=== PATIENT | male | born 1940 | race Caucasian/White ===

== ENCOUNTER 2020-11-27 07:43 | Outpatient (REF) | payer MEDICARE, SELFPAY ==
[2020-11-27 09:51] LABS: PSA,Total (Free>4and<10) 5.11 ng/mL (0.00-4.00)
[2020-11-28 11:02] LABS: Free Prostate Spec Ag 2.7 ng/mL; Percent Free Prostate Spec Ag 52 % (calc) (>25); Prostate Specific Ag Total 5.2 ng/mL (< OR = 4.0)
== END 2020-11-27 07:44 | disposition home or self-care (01) ==
LOC: HO.LAB 07:43
PROVIDERS: PCP Internal Medicine; Visit Provider Urology
DX: Z12.5 Encounter for screening for malignant neoplasm of prostate (principal); R97.20 Elevated prostate specific antigen [PSA]
CPT/HCPCS: 36415; 84153; 84154

== ENCOUNTER → 2020-12-08 14:36 | Outpatient (BNVA) | payer MEDICARE, SELFPAY | PROVIDERS: PCP Internal Medicine; Visit Provider Urology | DX: R97.20 Elevated prostate specific antigen [PSA] (principal); N40.1 Benign prostatic hyperplasia with lower urinary tract symptoms; N13.8 Other obstructive and reflux uropathy | CPT/HCPCS: 81002; 99212 ==

== ENCOUNTER → 2021-02-22 09:13 | Outpatient (BNVA) | payer MEDICARE, SELFPAY | PROVIDERS: PCP Internal Medicine; Visit Provider Urology | DX: N40.1 Benign prostatic hyperplasia with lower urinary tract symptoms (principal); N13.8 Other obstructive and reflux uropathy; R97.20 Elevated prostate specific antigen [PSA] | CPT/HCPCS: 99212 ==

== ENCOUNTER 2021-06-08 10:34 | Outpatient (REF) | payer MEDICARE, SELFPAY ==
[2021-06-08 12:22] LABS: PSA,Total (Free>4and<10) 6.05 ng/mL (0.00-4.00)
[2021-06-11 11:42] LABS: Free Prostate Spec Ag 3.1 ng/mL; Percent Free Prostate Spec Ag 51 % (calc) (>25); Prostate Specific Ag Total 6.1 ng/mL (< OR = 4.0)
== END 2021-06-08 10:35 | disposition home or self-care (01) ==
LOC: HO.LAB 10:34
PROVIDERS: PCP Internal Medicine; Visit Provider Urology
DX: Z12.5 Encounter for screening for malignant neoplasm of prostate (principal); N13.8 Other obstructive and reflux uropathy; N40.1 Benign prostatic hyperplasia with lower urinary tract symptoms; R97.20 Elevated prostate specific antigen [PSA]
CPT/HCPCS: 36415; 84153; 84154

== ENCOUNTER → 2021-06-13 13:07 | Outpatient (BNVA) | payer MEDICARE, SELFPAY | PROVIDERS: PCP Internal Medicine; Visit Provider Urology | DX: N40.1 Benign prostatic hyperplasia with lower urinary tract symptoms (principal); N13.8 Other obstructive and reflux uropathy; N52.1 Erectile dysfunction due to diseases classified elsewhere; I77.9 Disorder of arteries and arterioles, unspecified | CPT/HCPCS: Q3014 ==

== ENCOUNTER 2021-11-29 13:33 | Outpatient (REF) | payer MEDICARE, SELFPAY ==
[2021-11-29 15:15] LABS: PSA,Total (Free>4and<10) 7.21 ng/mL (0.00-4.00)
[2021-11-30 12:07] LABS: Free Prostate Spec Ag 3.6 ng/mL; Percent Free Prostate Spec Ag 50 % (calc) (>25); Prostate Specific Ag Total 7.2 ng/mL (< OR = 4.0)
== END 2021-11-29 13:34 | disposition home or self-care (01) ==
LOC: HO.LAB 13:33
PROVIDERS: PCP Internal Medicine; Visit Provider Urology
DX: Z12.5 Encounter for screening for malignant neoplasm of prostate (principal); N40.1 Benign prostatic hyperplasia with lower urinary tract symptoms; N13.8 Other obstructive and reflux uropathy
CPT/HCPCS: 36415; 84153; 84154

== ENCOUNTER → 2021-12-12 12:44 | Outpatient (BNVA) | payer MEDICARE, SELFPAY | PROVIDERS: PCP Internal Medicine; Visit Provider Urology | DX: R97.20 Elevated prostate specific antigen [PSA] (principal); N40.1 Benign prostatic hyperplasia with lower urinary tract symptoms; N13.8 Other obstructive and reflux uropathy | CPT/HCPCS: Q3014 ==

== ENCOUNTER 2022-02-21 10:21 | Outpatient (REF) | payer MEDICARE, SELFPAY ==
[2022-02-21 11:45] LABS: Appearance Urine CLEAR; Color Urine YELLOW; Glucose Urine UA NEG (NEG); Leukocyte Esterase Urine NEG (NEG); Nitrite Urine NEG (NEG); PH 6.5 (5.0-8.0); Urine Blood NEG (NEG); Urine Ketones NEG (NEG); Urine Protein NEG (NEG-TRACE)
== END 2022-02-21 10:22 | disposition home or self-care (01) ==
LOC: HO.HMGCLDS 10:21
PROVIDERS: Absent Provider Urology; Visit Provider Internal Medicine
DX: N40.1 Benign prostatic hyperplasia with lower urinary tract symptoms (principal); R30.0 Dysuria; N13.8 Other obstructive and reflux uropathy
CPT/HCPCS: 81003

== ENCOUNTER → 2022-04-04 10:22 | Outpatient (BNVA) | payer MEDICARE, SELFPAY | PROVIDERS: PCP Internal Medicine; Visit Provider Urology | DX: R97.20 Elevated prostate specific antigen [PSA] (principal); N40.1 Benign prostatic hyperplasia with lower urinary tract symptoms; N13.8 Other obstructive and reflux uropathy; N41.9 Inflammatory disease of prostate, unspecified; N52.1 Erectile dysfunction due to diseases classified elsewhere; I77.9 Disorder of arteries and arterioles, unspecified | CPT/HCPCS: 99212 ==

== ENCOUNTER → 2022-04-11 09:44 | Outpatient (BNVA) | payer MEDICARE, SELFPAY | PROVIDERS: PCP Internal Medicine; Visit Provider Urology | DX: N39.0 Urinary tract infection, site not specified (principal); N51 Disorders of male genital organs in diseases classified elsewhere; N45.1 Epididymitis; B49 Unspecified mycosis | CPT/HCPCS: Q3014 ==

== ENCOUNTER 2022-05-29 13:51 | Outpatient (REF) | payer MEDICARE, SELFPAY ==
[2022-05-29 15:24] LABS: PSA,Total (Free>4and<10) 4.86 ng/mL (0.00-4.00)
[2022-05-31 09:22] LABS: Free Prostate Spec Ag 3.3 ng/mL; Percent Free Prostate Spec Ag 56 % (calc) (>25); Prostate Specific Ag Total 5.9 ng/mL (< OR = 4.0)
== END 2022-05-29 13:52 | disposition home or self-care (01) ==
LOC: HO.LAB 13:51
PROVIDERS: PCP Internal Medicine; Visit Provider Urology
DX: Z12.5 Encounter for screening for malignant neoplasm of prostate (principal); N40.1 Benign prostatic hyperplasia with lower urinary tract symptoms; N13.8 Other obstructive and reflux uropathy
CPT/HCPCS: 36415; 84153; 84154

== ENCOUNTER → 2022-05-31 11:30 | Outpatient (BNVA) | payer MEDICARE, SELFPAY | PROVIDERS: PCP Internal Medicine; Visit Provider Urology | DX: N40.1 Benign prostatic hyperplasia with lower urinary tract symptoms (principal); N13.8 Other obstructive and reflux uropathy; I77.9 Disorder of arteries and arterioles, unspecified; N52.01 Erectile dysfunction due to arterial insufficiency; B37.49 Other urogenital candidiasis; N51 Disorders of male genital organs in diseases classified elsewhere | CPT/HCPCS: Q3014 ==

== ENCOUNTER 2022-11-18 11:15 | Outpatient (REF) | payer MEDICARE, SELFPAY ==
[2022-11-18 13:06] LABS: PSA,Total (Free>4and<10) 6.49 ng/mL (0.00-4.00)
[2022-11-19 10:44] LABS: Free Prostate Spec Ag 4.1 ng/mL; Percent Free Prostate Spec Ag 61 % (calc) (>25); Prostate Specific Ag Total 6.7 ng/mL (< OR = 4.0)
== END 2022-11-18 11:16 | disposition home or self-care (01) ==
LOC: HO.LAB 11:15
PROVIDERS: PCP Internal Medicine; Visit Provider Urology
DX: R97.20 Elevated prostate specific antigen [PSA] (principal); Z12.5 Encounter for screening for malignant neoplasm of prostate
CPT/HCPCS: 36415; 84153; 84154

== ENCOUNTER → 2022-12-03 15:22 | Outpatient (BNVA) | payer MEDICARE, SELFPAY | PROVIDERS: PCP Internal Medicine; Visit Provider Urology | DX: I77.9 Disorder of arteries and arterioles, unspecified (principal); N52.1 Erectile dysfunction due to diseases classified elsewhere; B37.49 Other urogenital candidiasis; N51 Disorders of male genital organs in diseases classified elsewhere; R97.20 Elevated prostate specific antigen [PSA] | CPT/HCPCS: 99212 ==

== ENCOUNTER 2023-05-15 10:05 | Outpatient (REF) | payer MEDICARE, SELFPAY ==
[2023-05-15 10:37] LABS: MANUAL DIFF FLAG NO
[2023-05-15 10:59] LABS: Basophils Percent Auto 0.4 % (0-2); Eosinophils Absolute Auto 0.2 X10*3/uL (0.0-0.4); Eosinophils Percent Auto 4.5 % (0-4); Hematocrit 46.2 % (42.0-52.0); Hemoglobin 15.5 g/dl (14.0-18.0); Imm Gran Abs Auto 0.02 X10*3/uL (0.00-0.03); Imm Gran Pct Auto 0.4 % (0.0-0.4); Lymphocytes Absolute Auto 1.5 X10*3/uL (1.2-4.9); Lymphocytes Percent Auto 30.4 % (20-40); Mean Corpuscular HGB Conc 33.5 g/dl (31.0-36.0); Mean Corpuscular Hemoglobin 30.5 pg (27.0-33.0); Mean Corpuscular Volume 90.8 fL (80.0-98.0); Mean Platelet Volume 9.4 fL (9.4-12.4); Monocytes Absolute Auto 0.4 X10*3/uL (0.1-1.2); Monocytes Percent Auto 9.1 % (2-11); Neutrophils Absolute Auto 2.7 x10*3/uL (2.0-8.3); Neutrophils Percent Auto 55.2 % (45-73); Platelet Count 144 X10*3/uL (160-400); Red Blood Count 5.09 X10*6/uL (4.60-5.80); Red Cell Distribution Width 12.8 % (11.0-16.0); White Blood Count 4.8 X10*3/uL (4.8-10.8)
[2023-05-15 11:32] LABS: Rheumatoid Factor < 13.0 IU/mL (<15.0)
[2023-05-15 11:39] LABS: C Reactive Protein 0.17 mg/dL (< or = 0.50)
[2023-05-15 11:42] LABS: Erythrocyte Sedimentation Rate 2 MM/HR (0-15)
[2023-05-15 11:54] LABS: PSA,Total (Free>4and<10) 8.41 ng/mL (0.00-4.00)
[2023-05-19 13:04] LABS: Free Prostate Spec Ag 3.4 ng/mL; Percent Free Prostate Spec Ag 44 % (calc) (>25); Prostate Specific Ag Total 7.7 ng/mL (< OR = 4.0)
[2023-05-21 12:13] LABS: Anti Nuclear Antibody Screen NEGATIVE (NEGATIVE)
[2023-05-21 13:24] LABS: Venous Lead 1.3 mcg/dL (<3.5)
== END 2023-05-15 10:06 | disposition home or self-care (01) ==
LOC: HO.LAB 10:05
PROVIDERS: Nurse Practitioner; Absent Provider Internal Medicine; PCP Internal Medicine; Visit Provider Urology
DX: R97.20 Elevated prostate specific antigen [PSA] (principal); R53.83 Other fatigue; M25.50 Pain in unspecified joint; Z12.5 Encounter for screening for malignant neoplasm of prostate
CPT/HCPCS: 36415; 83655; 84153; 84154; 85025; 85652; 86038; 86140; 86431

== ENCOUNTER 2023-06-03 12:44 | Outpatient (AMB) | payer MEDICARE, SELFPAY ==
--- NOTE | 2023-06-03 12:50 | MHC.OFFVIS ---
Intake Intake Visit Reasons: 6m/PSA(set) Intake Note: Patient is present for PSA Follow up Results: 05/15/23- PSA: 8.41 ng/mL Urology Med: Tadalafil, Tamsulosin Antibiotic Allergy: none Blood Thinner: Aspirin PVR: 21 mL Lockstitch Collar Setter Required: No Accompanied by: Self / Same As Patient Allergies No Known Allergies Allergy (Mild, Verified 12/03/22 15:44) N/A Medication List - Last Reconciled 06/03/23 by Antolin Cavanaugh MD amoxicillin-pot clavulanate 875-125 mg 1 tab PO BID aspirin 81 mg PO DAILY ciclopirox 8% topical fluocinolone acetonide oil 0.01% 0 drps otic (ears) naproxen (Naprosyn) 500 mg PO BID 30 days egsgxqyg-hpgfcpfyq-NH 3.5-10,000-1 mg/mL-unit/mL-% 3 drps otic (ears) nystatin 1,000,000 units PO BID ofloxacin 0.3% drps otic (ears) simvastatin 40 mg PO QPM tadalafil 5 mg PO DAILY 90 days tadalafil 20 mg PO ONCE 30 days tamsulosin 0.4 mg PO BEDTIME HPI HPI Comments History of Present Illness Details Kole is a pleasant male. He is a patient of Dr. Harrison. He is seen for the following urologic conditions - elevated PSA - lower urinary tract symptoms - prostatitis - erectile dysfunction High PSA with very high free PSA Normal MAKENZIE Refill medications Start finasteride 6 month follow-up PCPT database 12/15 HG 8% has relatives in [facility] Prostatitis Chronic prostatitis 04/15 Microgen 04/15 - large number of bacteria with fungus - see result Tx with augmentin, doxycyline, fluconazole Low urinary tract symptom with elevated PSA Has had variable PSA for number of years Responded well to tamsulosin Discussed current PSA Percentage free remains high MAKENZIE large prostate greater than 60 g Continue to follow every 6 months PSA - 03/13 5.3 41% free, 12/13 5.1, 06/14 6.1 51%, 12/14 7.2 50%, 06/15 5, 11/14 6.5, 05/17 8.4 Symptomatology - weakness of stream and incomplete emptying PFSH Medical History Vertigo Hearing loss Hyperlipidemia Elevated PSA Enlarged prostate without lower urinary tract symptoms (luts) Surgical History History of surgery Review of Systems Const Denies chills and Denies fever(s) Card Reports no additional complaints and Denies syncope Resp Denies cough GI Denies abdominal pain and Denies heartburn Reports as per HPI and Denies change in libido Neuro Denies syncope Psych Denies change in libido Endo Denies change in libido Physical Exam Const General: cooperative, healthy appearing, comfortable and no acute distress Orientation/consciousness: patient oriented x3 HEENT Face and sinus: Yes normal facial exam Mouth: moist mucous membranes Neck Neck: Yes normal visual inspection, Yes full ROM and Yes trachea midline Chest Chest palpation & inspection: normal inspection of the chest Resp Effort & Inspection: normal respiratory effort, able to speak in complete sentences and no respiratory distress GI Inspection: Yes normal to inspection Rectal Exam - Male: Yes normal sphincter tone and Yes prostate normal Male General Exam: Yes normal external exam Penis: normal penis and circumcised Meatus: meatus normal Scrotum: scrotum normal Testes: Testes normal Back/Spine/Pelvis Cervical Spine: normal cervical lordosis Thoracic/Lumbar Spine: thoracic and lumbar spine normal to inspection Skin General skin exam: no rashes or lesions noted Neuro General: patient oriented x3, gait normal, tone normal and moves all extremities Extrem General: Yes normal to inspection and Yes capillary refill normal Office Procedures Post Void Residual Post Residual Void Post Void Residual (PVR): 21 [id number] Void Residual by ultrasound Results AMB Urinalysis, Automated UA Leukoctes 0 Melony/uL Last Edit by ORLY George on 06/03/23 13:04 UA Nitrite Negative Last Edit by ORLY George on 06/03/23 13:04 UA Urobilinogen 0.2 mg/dL Last Edit by ORLY George on 06/03/23 13:04 UA Protein 0 mg/dL Last Edit by ORLY George on 06/03/23 13:04 UA pH 6.0 Last Edit by ORLY George on 06/03/23 13:04 UA Blood 0 Guido/uL Last Edit by ORLY George on 06/03/23 13:04 UA Specific Bayard 1.015 Last Edit by ORLY George on 06/03/23 13:04 UA Ketone Negative Last Edit by ORLY George on 06/03/23 13:04 UA Bilirubin 0 mg/dL Last Edit by ORLY George on 06/03/23 13:04 UA Glucose 0 mg/dL Last Edit by ORLY George on 06/03/23 13:04 Results Reviewed Results Reviewed: Laboratory Last Values Urine pH (Auto) 6.0 06/03/23 13:02 Specific Bayard (Auto) 1.015 06/03/23 13:02 Urine Protein (Auto) 0 mg/dL 06/03/23 13:02 Glucose (UA)(Auto) 0 mg/dL 06/03/23 13:02 Urine Ketones (Auto) Negative 06/03/23 13:02 Urine Blood (Auto) 0 Guido/uL 06/03/23 13:02 Urine Nitrite (Auto) Negative 06/03/23 13:02 Urine Bilirubin (Auto) 0 mg/dL 06/03/23 13:02 Urine Urobilinogen (Auto) 0.2 mg/dL 06/03/23 13:02 Leukocyte Esterase (Auto) 0 Melony/uL 06/03/23 13:02 Assessment & Plan Assessment & Plan (1) Erectile dysfunction due to arterial disease: Code(s): I77.9 - Disorder of arteries and arterioles, unspecified; N52.1 - Erectile dysfunction due to diseases classified elsewhere (2) BPH w urinary obs/LUTS: Code(s): N40.1 - Benign prostatic hyperplasia with lower urinary tract symptoms; N13.8 - Other obstructive and reflux uropathy Plan 6 month follow-up Orders: Orders AMB Urinalysis Automated Today Z13.9 - Encounter for screening, unspecified AMB Post Void Residual by ultrasound Today N39.8 - Other specified disorders of urinary system PSA,Total (Free>4and<10) 6 Months N13.8 - Other obstructive and reflux uropathy, N40.1 - Benign prostatic hyperplasia with lower urinary tract symptoms Medications: New finasteride 5 mg PO DAILY 90 days 90 tabs 1RF N13.8 - Other obstructive and reflux uropathy, N40.1 - Benign prostatic hyperplasia with lower urinary tract symptoms, R33.9 - Retention of urine, unspecified Refilled tadalafil 5 mg PO DAILY 90 days 90 tabs 1RF sexual activity N52.01 - Erectile dysfunction due to arterial insufficiency Patient Instructions: Imaging studies, laboratory and physical exam results were discussed and reviewed in detail. No major barriers to patient understanding were identified. An opportunity to ask questions regarding the treatment plan was provided. All questions were answered. The patient expressed understanding and agreement with the above treatment plan. The patient is aware they should contact our office by phone for worsening of their current condition or the appearance of new urologic symptoms. Compliance is encouraged with any medications and followup testing that is ordered. It is a privilege to participate in the urologic care of your patient. If you have any questions or concerns regarding treatment for the above conditions, or other urologic issues, please do not hesitate to contact me. The office telephone contact is [phone]. This note is constructed using voice recognition software. While every effort has been made to ensure accuracy thread puller errors may have been included. Yours sincerely, Dr Antolin Cavanaugh MD, [facility] - Urology Providers of Expert, Compassionate Care for the Genitourinary System Coding Level of Care Code Est Pt Level 4 (96821) Diagnoses Erectile dysfunction due to arterial disease I77.9; N52.1 BPH w urinary obs/LUTS N40.1; N13.8 CPT Codes Post Residual Void - PVR CPT Code: 34652-Rffq Void Residual by ultrasound ([id number])
== END 2023-06-03 13:36 | disposition home or self-care (01) ==
PROVIDERS: PCP Internal Medicine; Visit Provider Urology
DX: I77.9 Disorder of arteries and arterioles, unspecified (principal); N52.1 Erectile dysfunction due to diseases classified elsewhere; N40.1 Benign prostatic hyperplasia with lower urinary tract symptoms; N13.8 Other obstructive and reflux uropathy; Z13.9 Encounter for screening, unspecified
CPT/HCPCS: 99214

== ENCOUNTER → 2023-06-03 12:44 | Outpatient (BNVA) | payer MEDICARE, SELFPAY | PROVIDERS: Visit Provider Urology | DX: N40.1 Benign prostatic hyperplasia with lower urinary tract symptoms (principal); N13.8 Other obstructive and reflux uropathy; I77.9 Disorder of arteries and arterioles, unspecified; N52.1 Erectile dysfunction due to diseases classified elsewhere | CPT/HCPCS: 51798; 81003; 99212 ==

== ENCOUNTER 2023-09-29 15:26 | Outpatient (REF) | payer MEDICARE, SELFPAY ==
[2023-09-29 17:06] LABS: PSA,Total (Free>4and<10) 6.67 ng/mL (0.00-4.00)
[2023-09-29 18:02] LABS: Appearance Urine Clear; Color Urine Yellow; Glucose Urine UA Negative (Negative); Leukocyte Esterase Urine Negative (Negative); Nitrite Urine Negative (Negative); PH 6.5 (5.0-9.0); Specific Gravity - Urine <= 1.005 (1.005-1.025); Urine Blood Negative (Negative); Urine Ketones Negative (Negative); Urine Protein Negative (Neg-Trace)
[2023-09-29 18:05] LABS: Bacteria Urine None Seen (None Seen); Hyaline Casts Urine 0-2 /LPF (0-2); RBC Urine 0-2 /HPF (0-2); Squamous Epithelial Cell Urine 0-2 /HPF (0-2); WBC Urine 0-5 /HPF (0-5)
[2023-10-01 11:59] LABS: Percent Free Prostate Spec Ag 43 % (calc) (>25); Prostate Specific Ag Total 6.9 ng/mL (< OR = 4.0)
== END 2023-09-29 15:27 | disposition home or self-care (01) ==
LOC: HO.LAB 15:26
PROVIDERS: PCP Internal Medicine; Visit Provider Urology
DX: N40.1 Benign prostatic hyperplasia with lower urinary tract symptoms (principal); N13.8 Other obstructive and reflux uropathy; R30.0 Dysuria; Z12.5 Encounter for screening for malignant neoplasm of prostate
CPT/HCPCS: 36415; 81001; 84153; 84154; 87086

== ENCOUNTER 2023-11-24 09:43 | Outpatient (REF) | payer MEDICARE, SELFPAY ==
[2023-11-24 11:18] LABS: PSA,Total (Free>4and<10) 6.66 ng/mL (0.00-4.00)
[2023-11-25 11:04] LABS: Free Prostate Spec Ag 2.9 ng/mL; Percent Free Prostate Spec Ag 43 % (calc) (>25); Prostate Specific Ag Total 6.8 ng/mL (< OR = 4.0)
== END 2023-11-24 09:44 | disposition home or self-care (01) ==
LOC: HO.LAB 09:43
PROVIDERS: PCP Internal Medicine; Visit Provider Urology
DX: N40.1 Benign prostatic hyperplasia with lower urinary tract symptoms (principal); N13.8 Other obstructive and reflux uropathy; Z12.5 Encounter for screening for malignant neoplasm of prostate
CPT/HCPCS: 36415; 84153; 84154

== ENCOUNTER 2023-12-04 13:20 | Outpatient (AMB) | payer MEDICARE, SELFPAY ==
--- NOTE | 2023-12-04 13:21 | A.OFFVIS_ITS ---
Intake Intake Visit Reasons: 6M/PSA/CT(SET) confirmed Allergies No Known Allergies Allergy (Mild, Verified 12/03/22 15:44) N/A HPI HPI Comments History of Present Illness Details Kole is a pleasant male. He is a patient of Dr. Harrison. He is seen for the following urologic conditions - elevated PSA - lower urinary tract symptoms - prostatitis - erectile dysfunction Telemedicine Evaluation 15 min Consultation Doximity [place] Video High PSA with very high free PSA Normal MAKENZIE - large prostate Refill medications for 6m with PSA PCPT database 12/15 HG 8% has relatives in [facility] Prostatitis Chronic prostatitis 04/15 Microgen 04/15 - large number of bacteria with fungus - see result Tx with augmentin, doxycyline, fluconazole Low urinary tract symptom with elevated PSA Has had variable PSA for number of years Responded well to tamsulosin Discussed current PSA Percentage free remains high MAKENZIE large prostate greater than 60 g Continue to follow every 6 months PSA - 03/13 5.3 41% free, 12/13 5.1, 06/14 6.1 51%, 12/14 7.2 50%, 06/15 5, 11/14 6.5, 05/17 8.4 Symptomatology - weakness of stream and incomplete emptying PFSH Medical History Vertigo Hearing loss Hyperlipidemia Elevated PSA Enlarged prostate without lower urinary tract symptoms (luts) Surgical History History of surgery Review of Systems Const All systems reviewed & are unremarkable except as noted in HPI and below Reports no additional complaints Resp Reports no additional complaints GI Reports no additional complaints Reports as per HPI Musc Reports no additional complaints Physical Exam Telemedicine evaluation Appropriate responses Regular breathing rate and rhythm HEENT Head: Yes normal to inspection Ears: hearing grossly normal bilaterally Eyes General: appearance normal, both eyes and all related structures Neck Neck: Yes normal visual inspection Chest Chest palpation & inspection: normal inspection of the chest Resp Effort & Inspection: normal respiratory effort and able to speak in complete se ntences Assessment & Plan Assessment & Plan (1) BPH w urinary obs/LUTS: Code(s): N40.1 - Benign prostatic hyperplasia with lower urinary tract symptoms; N13.8 - Other obstructive and reflux uropathy (2) 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 No major barriers to patient understanding were identified. An opportunity to ask questions regarding the treatment plan was provided. All questions were answered. The patient expressed understanding and agreement with the above treatment plan. The patient is aware they should contact our office by phone for worsening of their current condition or the appearance of new urologic symptoms. Compliance is encouraged with any medications and followup testing that is ordered. It is a privilege to participate in the urologic care of your patient. If you have any questions or concerns regarding treatment for the above conditions, or other urologic issues, please do not hesitate to contact me. The office telephone contact is [phone]. This note is constructed using voice recognition software. While every effort has been made to ensure accuracy program/music director errors may have been included. Yours sincerely, Dr Antolin Cavanaugh MD, [facility] - Urology Providers of Expert, Compassionate Care for the Genitourinary System Telehealth Telehealth Location of provider rendering services: practice address Location of patient: address on file Patient Identification confirmed using: Name, : Yes Telehealth method: video Patient verbally consented to treatment: Yes Patient verbally consented to billing insurance company: Yes Patient informed of any privacy concerns related to visit: Yes Minutes spent on Phone/Video with Pt.: 15 Coding Level of Care Code Tele Est Pt Level 3 (89236) Diagnoses BPH w urinary obs/LUTS N40.1; N13.8 Erectile dysfunction due to arterial disease I77.9; N52.1
== END 2023-12-04 13:48 | disposition home or self-care (01) ==
LOC: HO.HUSH 13:20
PROVIDERS: PCP Internal Medicine; Visit Provider Urology
DX: N40.1 Benign prostatic hyperplasia with lower urinary tract symptoms (principal); N13.8 Other obstructive and reflux uropathy; I77.9 Disorder of arteries and arterioles, unspecified; N52.1 Erectile dysfunction due to diseases classified elsewhere
CPT/HCPCS: 99213

== ENCOUNTER → 2023-12-04 13:20 | Outpatient (BNVA) | payer MEDICARE, SELFPAY | PROVIDERS: PCP Internal Medicine; Visit Provider Urology ==

== ENCOUNTER 2024-05-26 14:42 | Outpatient (REF) | payer MEDICARE, SELFPAY ==
[2024-05-26 17:32] LABS: PSA,Total (Free>4and<10) 5.23 ng/mL (0.00-4.00)
[2024-05-27 12:13] LABS: Free Prostate Spec Ag 3.4 ng/mL; Percent Free Prostate Spec Ag 55 % (calc) (>25); Prostate Specific Ag Total 6.2 ng/mL (< OR = 4.0)
== END 2024-05-26 14:43 | disposition home or self-care (01) ==
LOC: HO.LAB 14:42
PROVIDERS: PCP Internal Medicine; Visit Provider Urology
DX: R97.20 Elevated prostate specific antigen [PSA] (principal); Z12.5 Encounter for screening for malignant neoplasm of prostate
CPT/HCPCS: 36415; 84153; 84154

== ENCOUNTER 2024-06-04 13:56 | Outpatient (AMB) | payer MEDICARE, SELFPAY ==
--- NOTE | 2024-06-04 14:04 | MHC.OFFVIS ---
Intake Visit Reasons: 6m/PSA(set) Intake Note: Patient is Present for Follow Up PSA Urology Medication: Tamsulosin, Tadalafil, Finasteride Antibiotic Allergies: None Blood Thinners: Aspirin Recent PSA: 05/26/24 TOTAL PSA: 5.23 FREE PSA: 3.4 %FREE PSA: 55% Data Operations Director Required: No Accompanied by: Self / Same As Patient Allergies No Known Allergies Allergy (Mild, Verified 07/08/24 09:20) N/A HPI Comments Details: Kole is a pleasant male. He is a patient of Dr. Harrison. He is seen for the following urologic conditions - elevated PSA - lower urinary tract symptoms - prostatitis - erectile dysfunction PSA 5.2 free 55% PCPT database 12/15 HG 8% Continue Q six-month evaluation has relatives in [facility] Prostatitis Chronic prostatitis 04/15 Microgen 04/15 - large number of bacteria with fungus - see result Tx with augmentin, doxycyline, fluconazole Low urinary tract symptom with elevated PSA Has had variable PSA for number of years Responded well to tamsulosin Discussed current PSA Percentage free remains high MAKENZIE large prostate greater than 60 g Continue to follow every 6 months PSA - 03/13 5.3 41% free, 12/13 5.1, 06/14 6.1 51%, 12/14 7.2 50%, 06/15 5, 11/14 6.5, 05/17 8.4, 06/17 5.2 55% Symptomatology - weakness of stream and incomplete emptying PFSH Medical History Vertigo Hearing loss Hyperlipidemia Elevated PSA Enlarged prostate without lower urinary tract symptoms (luts) Surgical History History of surgery Review of Systems Const Denies chills and Denies fever(s) Card Reports no additional complaints and Denies syncope Resp Denies cough GI Denies abdominal pain and Denies heartburn Reports as per HPI and Denies change in libido Neuro Denies syncope Psych Denies change in libido Endo Denies change in libido Physical Exam Const General: cooperative, healthy appearing, comfortable and no acute distress Orientation/consciousness: patient oriented x3 HEENT Face and sinus: Yes normal facial exam Mouth: moist mucous membranes Neck Neck: Yes normal visual inspection, Yes full ROM and Yes trachea midline Chest Chest palpation & inspection: normal inspection of the chest Resp Effort & Inspection: normal respiratory effort, able to speak in complete sentences and no respiratory distress GI Inspection: Yes normal to inspection Back/Spine/Pelvis Cervical Spine: normal cervical lordosis Thoracic/Lumbar Spine: thoracic and lumbar spine normal to inspection Skin General skin exam: no rashes or lesions noted Neuro General: patient oriented x3, gait normal, tone normal and moves all extremities Extrem General: Yes normal to inspection and Yes capillary refill normal Assessment & Plan Assessment & Plan (1) BPH w urinary obs/LUTS: Code(s): N40.1 - Benign prostatic hyperplasia with lower urinary tract symptoms; N13.8 - Other obstructive and reflux uropathy Category: Medical (2) Elevated PSA: Code(s): R97.20 - Elevated prostate specific antigen [PSA] Category: Medical Plan Six-month follow-up PSA Orders: Orders PSA,Total (Free>4and<10) 6 Months N30.90 - Cystitis, unspecified without hematuria Patient Instructions: Imaging studies, laboratory and physical exam results were discussed and reviewed in detail. No major barriers to patient understanding were identified. An opportunity to ask questions regarding the treatment plan was provided. All questions were answered. The patient expressed understanding and agreement with the above treatment plan. The patient is aware they should contact our office by phone for worsening of their current condition or the appearance of new urologic symptoms. Compliance is encouraged with any medications and followup testing that is ordered. It is a privilege to participate in the urologic care of your patient. If you have any questions or concerns regarding treatment for the above conditions, or other urologic issues, please do not hesitate to contact me. The office telephone contact is [phone]. This note is constructed using voice recognition software. While every effort has been made to ensure accuracy library clerk talking books errors may have been included. Yours sincerely, Dr Antolin Cavanaugh MD, [facility] - Urology Providers of Expert, Compassionate Care for the Genitourinary System Coding Level of Care Code Est Pt Level 3 (29783) Diagnoses BPH w urinary obs/LUTS N40.1; N13.8 Elevated PSA R97.20
== END 2024-06-04 14:51 | disposition home or self-care (01) ==
LOC: HO.HUSH 13:56
PROVIDERS: PCP Internal Medicine; Visit Provider Urology
DX: N40.1 Benign prostatic hyperplasia with lower urinary tract symptoms (principal); N13.8 Other obstructive and reflux uropathy; R97.20 Elevated prostate specific antigen [PSA]
CPT/HCPCS: 99213

== ENCOUNTER → 2024-06-04 13:56 | Outpatient (BNVA) | payer MEDICARE, SELFPAY | PROVIDERS: PCP Internal Medicine; Visit Provider Urology | DX: N40.1 Benign prostatic hyperplasia with lower urinary tract symptoms (principal); N13.8 Other obstructive and reflux uropathy; N52.9 Male erectile dysfunction, unspecified; R97.20 Elevated prostate specific antigen [PSA]; N30.90 Cystitis, unspecified without hematuria | CPT/HCPCS: 99212 ==

== ENCOUNTER 2024-07-08 09:03 | Outpatient (AMB) | payer MEDICARE, SELFPAY ==
--- NOTE | 2024-07-08 09:15 | MHC.OFFVIS ---
Intake Visit Reasons: PSA Follow Up(Elevated) Intake Note: Patient is present for PSA F/U Urology Medication:TAMSULOSIN,TADALAFIL,FINASTERIDE Antibiotic Allergy:NONE Blood Thinner:NONE Chef Kitchen Manager Required: No Allergies No Known Allergies Allergy (Mild, Verified 07/08/24 09:20) N/A HPI Comments Details: Kole is a pleasant male. He is a patient of Dr. Harrison. He is seen for the following urologic conditions - elevated PSA - lower urinary tract symptoms - prostatitis - erectile dysfunction High PSA with very high free PSA Normal MAKENZIE - large prostate Refill medications for 6m with PSA UA normal Numbers remain consistent PCPT database 12/15 HG 8% has relatives in [facility] Prostatitis Chronic prostatitis 04/15 Microgen 04/15 - large number of bacteria with fungus - see result Tx with augmentin, doxycyline, fluconazole Low urinary tract symptom with elevated PSA Has had variable PSA for number of years Responded well to tamsulosin Discussed current PSA Percentage free remains high MAKENZIE large prostate greater than 60 g Continue to follow every 6 months PSA - 03/13 5.3 41% free, 12/13 5.1, 06/14 6.1 51%, 12/14 7.2 50%, 06/15 5, 11/14 6.5, 05/17 8.4, 06/17 5.2 55% Symptomatology - weakness of stream and incomplete emptying PFSH Medical History Vertigo Hearing loss Hyperlipidemia Elevated PSA Enlarged prostate without lower urinary tract symptoms (luts) Surgical History History of surgery Results AMB Urinalysis, Automated UA Leukoctes 0 Melony/uL Last Edit by NEREIDA Gonzalez on 07/08/24 09:43 UA Nitrite Negative Last Edit by NEREIDA Gonzalez on 07/08/24 09:43 UA Urobilinogen 1 mg/dL Last Edit by NEREIDA Gonzalez on 07/08/24 09:43 UA Protein 0 mg/dL Last Edit by NEREIDA Gonzalez on 07/08/24 09:43 UA pH 5.5 Last Edit by NEREIDA Gonzalez on 07/08/24 09:43 UA Blood 0 Guido/uL Last Edit by Yandel Avendaño CCMA on 07/08/24 09:43 UA Specific [place] 1.020 Last Edit by NEREIDA Gonzalez on 07/08/24 09:43 UA Ketone Negative Last Edit by NEREIDA Gonzalez on 07/08/24 09:43 UA Bilirubin 0 mg/dL Last Edit by NEREIDA Gonzalez on 07/08/24 09:43 UA Glucose 0 mg/dL Last Edit by NEREIDA Gonzalez on 07/08/24 09:43 Results Reviewed Results Reviewed: Laboratory Last Values Urine pH (Auto) 5.5 07/08/24 09:43 Specific [place] (Auto) 1.020 07/08/24 09:43 Urine Protein (Auto) 0 mg/dL 07/08/24 09:43 Glucose (UA)(Auto) 0 mg/dL 07/08/24 09:43 Urine Ketones (Auto) Negative 07/08/24 09:43 Urine Blood (Auto) 0 Guido/uL 07/08/24 09:43 Urine Nitrite (Auto) Negative 07/08/24 09:43 Urine Bilirubin (Auto) 0 mg/dL 07/08/24 09:43 Urine Urobilinogen (Auto) 1 mg/dL 07/08/24 09:43 Leukocyte Esterase (Auto) 0 Melony/uL 07/08/24 09:43 Assessment & Plan Assessment & Plan Orders: Orders AMB Urinalysis Automated Today Z13.9 - Encounter for screening, unspecified Coding
== END 2024-07-08 10:09 | disposition home or self-care (01) ==
PROVIDERS: PCP Internal Medicine; Visit Provider Urology
DX: Z13.9 Encounter for screening, unspecified (principal)

== ENCOUNTER → 2024-07-08 09:03 | Outpatient (BNVA) | payer MEDICARE, SELFPAY | PROVIDERS: PCP Internal Medicine; Visit Provider Urology | DX: N40.1 Benign prostatic hyperplasia with lower urinary tract symptoms (principal); N13.8 Other obstructive and reflux uropathy; R97.20 Elevated prostate specific antigen [PSA]; I77.9 Disorder of arteries and arterioles, unspecified; N52.1 Erectile dysfunction due to diseases classified elsewhere | CPT/HCPCS: 81003; 99212 ==

== ENCOUNTER 2024-12-23 09:18 | Outpatient (REF) | payer MEDICARE, SELFPAY ==
[2024-12-23 11:14] LABS: PSA,Total (Free>4and<10) 7.56 ng/mL (0.00-4.00)
[2024-12-27 10:54] LABS: Free Prostate Spec Ag 2.5 ng/mL; Percent Free Prostate Spec Ag 32 % (calc) (>25); Prostate Specific Ag Total 7.8 ng/mL (< OR = 4.0)
== END 2024-12-23 09:19 | disposition home or self-care (01) ==
LOC: HO.LAB 09:18
PROVIDERS: PCP Internal Medicine; Visit Provider Urology
DX: N30.90 Cystitis, unspecified without hematuria (principal); Z12.5 Encounter for screening for malignant neoplasm of prostate
CPT/HCPCS: 36415; 84153; 84154

== ENCOUNTER 2025-01-04 13:09 | Outpatient (AMB) | payer MEDICARE, SELFPAY ==
--- NOTE | 2025-01-04 13:16 | MHC.OFFVIS ---
Intake Visit Reasons: 6m/PSA Intake Note: Patient is present for 6M/PSA Urology Medication:TAMSULOSIN,TADALAFIL Antibiotic Allergy:NONE Blood Thinner:ASPIRIN Administrative Resources Associate Required: No Allergies No Known Allergies Allergy (Mild, Verified 01/04/25 13:18) N/A HPI Comments Details: Kole is a pleasant male. He is a patient of Dr. Harrison. He is seen for the following urologic conditions - elevated PSA - lower urinary tract symptoms - prostatitis - erectile dysfunction High PSA with very high free PSA Normal MAKENZIE - large prostate Number showed 10% chance high-grade Trial dutasteride Numbers remain consistent PCPT database 12/15 HG 8% has relatives in [facility] Prostatitis Chronic prostatitis 04/15 Microgen 04/15 - large number of bacteria with fungus - see result Tx with augmentin, doxycyline, fluconazole Low urinary tract symptom with elevated PSA Has had variable PSA for number of years Responded well to tamsulosin Discussed current PSA Percentage free remains high CT scan 120 g prostate Continue to follow every 6 months PSA - 03/13 5.3 41% free, 12/13 5.1, 06/14 6.1 51%, 12/14 7.2 50%, 06/15 5, 11/14 6.5, 05/17 8.4, 06/17 5.2 55%, 01/16 7.8 32% Symptomatology - weakness of stream and incomplete emptying PFSH Medical History Vertigo Hearing loss Hyperlipidemia Elevated PSA Enlarged prostate without lower urinary tract symptoms (luts) Surgical History History of surgery Review of Systems Const Denies chills and Denies fever(s) Card Reports no additional complaints and Denies syncope Resp Denies cough GI Denies abdominal pain and Denies heartburn Reports as per HPI and Denies change in libido Neuro Denies syncope Psych Denies change in libido Endo Denies change in libido Physical Exam Const General: cooperative, healthy appearing, comfortable and no acute distress Orientation/consciousness: patient oriented x3 HEENT Face and sinus: Yes normal facial exam Mouth: moist mucous membranes Neck Neck: Yes normal visual inspection, Yes full ROM and Yes trachea midline Chest Chest palpation & inspection: normal inspection of the chest Resp Effort & Inspection: normal respiratory effort, able to speak in complete sentences and no respiratory distress GI Inspection: Yes normal to inspection Back/Spine/Pelvis Cervical Spine: normal cervical lordosis Thoracic/Lumbar Spine: thoracic and lumbar spine normal to inspection Skin General skin exam: no rashes or lesions noted Neuro General: patient oriented x3, gait normal, tone normal and moves all extremities Extrem General: Yes normal to inspection and Yes capillary refill normal Assessment & Plan Assessment & Plan (1) BPH w urinary obs/LUTS: Code(s): N40.1 - Benign prostatic hyperplasia with lower urinary tract symptoms; N13.8 - Other obstructive and reflux uropathy Category: Medical (2) Elevated PSA: Code(s): R97.20 - Elevated prostate specific antigen [PSA] Category: Medical Plan Six-month follow-up PSA Orders: Orders PSA,Total (Free>4and<10) 6 Months R97.20 - Elevated prostate specific antigen [PSA] Medications: New dutasteride 0.5 mg PO DAILY 90 days 90 caps 1RF N13.8 - Other obstructive and reflux uropathy, N40.1 - Benign prostatic hyperplasia with lower urinary tract symptoms, R97.20 - Elevated prostate specific antigen [PSA] Patient Instructions: This note is constructed using voice recognition software. While every effort has been made to ensure accuracy cook roast errors may have been included. Imaging studies, laboratory and physical exam results were discussed and reviewed in detail. No major barriers to patient understanding were identified. An opportunity to ask questions regarding the treatment plan was provided. All questions were answered. The patient expressed understanding and agreement with the above treatment plan. The patient is aware they should contact our office by phone for worsening of their current condition or the appearance of new urologic symptoms. Compliance is encouraged with any medications and followup testing that is ordered. It is a privilege to participate in the urologic care of your patient. If you have any questions or concerns regarding treatment for the above conditions, or other urologic issues, please do not hesitate to contact me. The office telephone contact is [phone]. Sincerely, Dr Antolin Cavanaugh MD, [facility] - Urology Compassionate Specialist Care for the Genitourinary System Coding Level of Care Code Est Pt Level 4 (77410) Diagnoses BPH w urinary obs/LUTS N40.1; N13.8 Elevated PSA R97.20
== END 2025-01-04 13:47 | disposition home or self-care (01) ==
LOC: HO.HUSH 13:09
PROVIDERS: PCP Internal Medicine; Visit Provider Urology
DX: N40.1 Benign prostatic hyperplasia with lower urinary tract symptoms (principal); N13.8 Other obstructive and reflux uropathy; R97.20 Elevated prostate specific antigen [PSA]
CPT/HCPCS: 99214

== ENCOUNTER → 2025-01-04 13:09 | Outpatient (BNVA) | payer MEDICARE, SELFPAY | PROVIDERS: PCP Internal Medicine; Visit Provider Urology | DX: N40.1 Benign prostatic hyperplasia with lower urinary tract symptoms (principal); N13.8 Other obstructive and reflux uropathy; R97.20 Elevated prostate specific antigen [PSA] | CPT/HCPCS: 99212 ==

== ENCOUNTER 2025-06-17 11:44 | Outpatient (REF) | payer MEDICARE, SELFPAY ==
--- OUTSIDE RECORDS SUMMARY | 2021-05-11 | XMS_ITS | Encounter Summary ---
Author Organization [facility] Address [facility] [address] [place] [address] Phone Care Team Providers Care Saturator Name Role Phone Unavailable Primary Care Provider Unavailabl e Encounter Details Date Type Department Care Team (Late st Contact Info) Description 05/11/2021 Hospital Encounter [facility] OUTSIDE [address] [place] [phone] Andreina Plascencia MD [address] [place] [address] [email or web address] Social [...] Info) Description 09/26/2025 10:30 AM EST Evaluation [facility] [address] [phone] Mirna Chávez, AuD 65 [facility], [facility] [address] [place] [address] [email or web address] 09/26/2025 10:45 AM EST Office Visit [facility] Otolaryngology [address] [address] Mana Mooney MD [address] [place] [phone] [email or web address] 11/15/2025 12:30 PM EDT Evaluation [facility] Audiology [address] [phone] Mirna Chávez, AuD 65 [facility], [facility] [address] [place] [address] [email or web address] documented as of this encounter Procedures Procedure [...] It is not the complete legal health record.[facility]
--- OUTSIDE RECORDS SUMMARY | 2021-05-11 00:05 | XMS_ITS | Encounter Summary ---
Author Organization [facility] Address [facility] [employer] [facility] [address] [place] [address] Phone Care Team Providers Care Interstate Bus Driver Name Role Phone Unavailable Primary Care Provider Unavailabl e Encounter Details Date Type Department Care Team ([facility] st Contact Info) Description 05/11/2021 12:05 AM EDT Hospital Encounter [facility] OUTSIDE [address] [place] [phone] Andreina Plascencia MD [address] [place] [address] [email or web address] Social History Tobacco Use Types Packs/Day Years [...] Info) Description 09/26/2025 10:30 AM EST Evaluation [facility] Audiology [address] [phone] Mirna Chávez, AuD [address] [facility], [facility] [address] [place] [address] [email or web address] 09/26/2025 10:45 AM EST Office Visit [facility] Otolaryngology [address] [address] Mana Mooney MD [address] [place] [phone] [email or web address] 11/15/2025 12:30 PM EDT Evaluation [facility] Audiology [address] [phone] Mirna Chávez, AuD [address] [place] [address], [facility] [address] [place] [address] [email or web address] documented as of this encounter Procedures [...] It is not the complete legal health record.[facility]
[2025-06-17 13:22] LABS: PSA,Total (Free>4and<10) 4.32 ng/mL (0.00-4.00)
--- OUTSIDE RECORDS SUMMARY | 2025-06-17 14:06 | XMS_ITS | Encounter Summary ---
Author Organization [facility] Address [facility] [address] [address] [place] [address] Phone Care Team Providers Care Change Coordinator Name Role Phone Lis Harrison MD Primary Care Provider [phone] Mana Mooney MD Unavailable [phone] Encounter Details Date Type Department Care Team (Late st Contact Info) Description 12/19/2021 Procedure Pass [facility] - [facility] [address] [place] [address] Social History Tobacco Use Types Packs/Day Years Used Date Smoking Tobacco: Former Smokeless Tobacco: Never Comments:quit 15 years ago Alcohol Use Standard Drinks/Week Comments Yes 1 (1 standard drink = 0.6 oz pur e alcohol) 1 Sex and Gender Information Value Date Recorded Sex Assigned at Male 01/10/2022 11:48 AM EDT Legal Sex Male 10:31 AM EDT Gender Identity Male 01/10/2022 11:48 AM EDT Sexual Orientation Straight 01/10/2022 11 :48 AM EDT documented as of this encounter Plan of Treatment Upcoming Encounters Date Type Department Care Team (Late Contact Info) Description 09/26/2025 10:30 AM EST [place] [facility] [place] [address] [phone] Mirna Chávez, Enedina [address] [facility], [address] [place] [address] [email or web address] 09/26/2025 10:45 AM EST Office Visit [facility] Otolaryngology [place] [address] [place] [address] Mana Mooney MD [address] [place] [id number] [email or web address] 11/15/2025 12:30 PM EDT Evaluation [facility] Audiology [address] [place] [address] Mirna Chávez AuD [address] [facility] [address] [place] [address] [email or web address] documented as of this encounter Visit Diagnoses Not on filedocumented in this encounter Care Teams Change Coordinator Relationship Specialty Start Date End Date Lis Harrison MD [address] [place] [phone] [email or web address] PCP - General 06/12/21 Mana Mooney MD [address] [place] [phone] [email or web address] Referring Physician Otolaryngology 04/09/23 documented as of this encounter Additional Source Comments The information contained in this document represents components of the legal health record. It is not the complete legal health record.[facility]
--- OUTSIDE RECORDS SUMMARY | 2025-06-17 14:06 | XMS_ITS | Encounter Summary ---
Author Organization [facility] Address [address] [place] [address] [place] [address] Phone Care Team Providers Care Gift Packer Name Role Phone Lis Harrison MD Primary Care Provider [phone] Mana Mooney MD Unavailable [phone] Encounter Details Date Type Department Care Team (Late st Contact Info) Description 03/12/2023 Procedure Pass [facility] - MRI, [facility] [address] [place] [address] Social History Tobacco Use Types Packs/Day Years [...] Info) Description 09/26/2025 10:30 AM EST Evaluation [facility] [place] [address] [phone] Mirna Chávez, AuD 65 [facility] [address] [place] [address] [email or web address] 09/26/2025 10:45 AM EST Office Visit [facility] [place] Otolaryngology [address] [address] Mana Mooney MD [address] [place] [phone] [email or web address] 11/15/2025 12:30 PM EDT Evaluation [facility] [place] Audiology [address] [address] Mirna Chávez, AuD [address] [place] [phone] [email or web address] documented as of this encounter Visit Diagnoses Not on filedocumented in this encounter Care Teams Gift Packer Relationship Specialty Start Date End Date Lis Harrison MD [address] [place] [phone] [email or web address] PCP - General 06/12/21 Mana Mooney MD [address] [place] [phone] [email or web address] Referring Physician Otolaryngology 04/09/23 documented as of this encounter Additional Source Comments The information contained in this document represents components of the legal health record. It is not the complete legal health record.[facility]
--- OUTSIDE RECORDS SUMMARY | 2025-06-17 14:06 | XMS_ITS | Clinical Summary ---
Author Organization [facility] Address [address] [place] [phone] Phone Care Team Providers Care Green Chain Offbearer Name Role Phone Lis Harrison MD Primary Care Provider [phone] Mana Mooney MD Unavailable [phone] Allergies No known active allergies Medications clotrimazole (LOTRIMIN) 1 % external solution PLACE 4-5 DROPS TWO TIMES A DAY TO LEFT EAR 1 Active tamsulosin (FLOMAX) 0.4 mg Cap TAKE ONE CAPSULE BY MOUTH EVERY DAY AT BEDTIME 1 Active tadalafiL (CIALIS, ADCIRCA) 20 MG tablet prn 1 Active simvastatin (ZOCOR) 40 MG tablet TAKE ONE TABLET BY MOUTH EVERY DAY IN THE EVENING 1 Active ASPIRIN ORAL Take 81 mg by mouth every morning. Active omeprazole (PRILOSEC) 20 mg TbEC Take 20 mg by mouth daily as needed. Active senna (SENOKOT) 8.6 mg tablet Take 1 tablet by mouth daily. Active therapeutic multivitamin tablet Take 1 tablet by mouth daily. Active oxyCODONE 5 MG immediate release tablet Take 1 tablet (5 mg total) by mouth every 6 (six) hours as needed for severe pain. Partial fill ok 5 tablet 2 Active Additional Information Patient not taking.Reported on 01/14/2023 docusate sodium (COLACE) 100 MG capsule Take 1 capsule (100 mg total) by mouth 2 (two) times a day. 2 Active Additional Information Patient not taking.Reported on 01/14/2023 methylPREDNISolo ne (MEDROL DOSEPACK) 4 mg tablet follow package directions 21 tablet 2 Active Additional Information Patient not taking.Reported on 01/14/2023 nystatin (MYCOSTATIN) 100,000 units/mL suspension 5 cc swish, gargle and swallow three times a day if you develop thrush. 60 mL 2 3 Active doxycycline monohydrate (MONODOX) 100 MG capsule Take 1 capsule (100 mg total) by mouth 2 (two) times a day. 42 capsule 3 Active venlafaxine (EFFEXOR-XR) 37.5 MG 24 hr capsule Take 1 capsule (37.5 mg total) by mouth daily. If tolerated after 1-2 weeks, patient can increase to 75 mg nightly 30 capsule 2 4 Active Active Problems Problem Noted Date Diagnosed Date Vertigo 04/09/2023 Myalgia 04/09/2023 Malaise and fatigue 04/09/2023 Encounters Date Type Department Care Team Description 05/03/2025 3:15 PM EDT Evaluation [facility] [place] Audiology [address] [address] Mirna Chávez, Enedina Encounter for fitting and adjustment of hearing aid of both ears (Primary Dx) from Last 3 Months Family History Medical History Relation Comments Hearing loss Brother 1 Hearing loss Brother 2 Hearing loss Sister Relation Status Comments Brother 1 Brother 2 Sister Social History Tobacco Use Types Packs/Day Years Used Date Smoking Tobacco: Former Smokeless Tobacco: Never Tobacco Cessation:Counseling Given: Not Answered Comments:50 yrs ago Alcohol Use Standard Drinks/Week [...] Orientation Straight 01/10/2022 11 :48 AM EDT Last Filed Vital Signs Vital Sign Reading Time Taken Comments Blood Pressure 137/76 04/09/2023 1:52 PM EDT Pulse 62 04/09/2023 1:52 PM EDT Temperature 36.8 C (98.3 F) 04/09/2023 1:52 PM EDT Respiratory Rate 16 01/17/2022 3:32 PM EDT Oxygen Saturation 97% 04/09/2023 1:52 PM EDT Inhaled Oxygen Concentration - - Weight 98.9 kg (218 lb) 04/09/2023 1:52 PM EDT Height 182.9 cm (6') 04/01/2023 7:11 AM EDT Body Mass Index 29.57 04/01/2023 7:11 AM EDT Plan of Treatment Upcoming Encounters Date Type Department Care Team (Late st Contact Info) Description 09/26/2025 10:30 AM EST Evaluation [facility] Audiology [address] [phone] Mirna Chávez AuD [address] [facility], [facility] [address] [place] [address] [email or web address] 09/26/2025 10:45 AM EST Office Visit [facility] Otolaryngology [address] [address] Mana Mooney MD [address] [place] [phone] [email or web address] 11/15/2025 12:30 PM EDT Evaluation [facility] Audiology [address] [phone] Mirna Chávez AuD [address] [facility], [address] [place] [address] [email or web address] Health Maintenance Due Date Last Done Comments Adult Td,Tdap Booster 1942 DEPRESSION SCREENING 1954 PNEUMOCOCCAL VACCINES (50+ years) (1 of 1 - PCV) 1992 ZOSTER VACCINES (1 of 2) 1992 RSV VACCINE (1 - 1-dose 75+ series) 2017 INFLUENZA VACCINE (#1) 2025 COVID-19 VACCINE ( - 2024-2 6 season) 2025 06/20/2021, 10/23/2020, 10/02/2020 HEPATITIS A VACCINES Aged Out No long er eligible based on patient's age to complete this topic HIB VACCINES Aged Out No longer eligi ble based on patient's age to complete this topic MENINGOCOCCAL VACCINES (ACWY) Aged Out No longer eligible based on patient's age to complete this topic MENINGOCOCCAL VACCINES (B) Aged Out N o longer eligible based on patient's age to complete this topic Medical Devices Not on file Insurance [place] MEDICARE PPO BLUE REPLACEMENT [facility] MEDICARE PPO BLUE [place] [address] [address] [place] [address] MEDICARE [address] [address] [place] [address] MEDICARE PPO BLUE REPLACEMENT [facility] MEDICARE PPO BLUE REPLACEMENT [employer] [place] MEDICARE P[place] BLUE REPLACEMENT Advance Directives For more information, please contact: [phone] (9AM - 5PM [facility], Friday-Friday) Documents on File Type Date Recorded Patient Cane Stripper Expl anation Healthcare Proxy 01/18/2022 12:41 PM Care Teams Green Chain Offbearer Relationship Specialty Start Date End Date Lis Harrison MD [address] [place] [phone] [email or web address] PCP - General 06/12/21 Mana Mooney MD [address] [place] [phone] [email or web address] Referring Physician Otolaryngology 04/09/23 Additional Source Comments The information contained in this document represents components of the legal health record. It is not the complete legal health record.[facility]
--- OUTSIDE RECORDS SUMMARY | 2025-06-17 14:06 | XMS_ITS | Encounter Summary ---
Author Organization [facility] Address [facility] [employer] [facility] [address] [place] [address] Phone Care Team Providers Care Outside Machinist Supervisor Name Role Phone Lis Harrison MD Primary Care Provider [phone] Mana Mooney MD Unavailable [phone] Encounter Details Date Type Department Care Team (Late st Contact Info) Description 01/17/2022 Procedure Pass [facility] [address] [place] [phone] Social History Tobacco Use Types Packs/Day Years Used Date Smoking Tobacco: Former Smokeless Tobacco: Never Comments:50 yrs ago Alcohol Use Standard Drinks/Week Comments Yes 10 (1 standard drink = 0.6 oz pu re alcohol) 1 beer a day Sex and Gender Information Value Date Recorded Sex Assigned at Male 01/10/2022 11:48 AM EDT Legal Sex Male 10:31 AM EDT Gender Identity Male 01/10/2022 11:48 AM EDT Sexual Orientation Straight 01/10/2022 11 :48 AM EDT documented as of this encounter Plan of Treatment Upcoming Encounters Date Type Department Care Team (Late Contact Info) Description 09/26/2025 10:30 AM EST Evaluation [facility] [place] [address] [address] Mirna Chávez, AuD 65 [facility], [address] [place] [address] [email or web address] 09/26/2025 10:45 AM EST Office Visit [facility] [place] [address] [place] [address] Mana Mooney MD [address] [place] [phone] [email or web address] 11/15/2025 12:30 PM EDT Evaluation [facility] [place] [address] [place] [address] Mirna Chávez AuD 65 [facility] [address] [place] [address] [email or web address] documented as of this encounter Visit Diagnoses Not on filedocumented in this encounter Care Teams Outside Machinist Supervisor Relationship Specialty Start Date End Date Lis Harrison MD [address] [place] [address] [email or web address] PCP - General 06/12/21 Mana Mooney MD [address] [place] [address] [email or web address] Referring Physician Otolaryngology 04/09/23 documented as of this encounter Additional Source Comments The information contained in this document represents components of the legal health record. It is not the complete legal health record.[facility]
[2025-06-20 13:44] LABS: Free Prostate Spec Ag 2.1 ng/mL; Percent Free Prostate Spec Ag 45 % (calc) (>25)
== END 2025-06-17 11:45 | disposition home or self-care (01) ==
LOC: HO.LAB 11:44
PROVIDERS: PCP Internal Medicine; Visit Provider Urology
DX: R97.20 Elevated prostate specific antigen [PSA] (principal); Z12.5 Encounter for screening for malignant neoplasm of prostate
CPT/HCPCS: 36415; 84153; 84154

== ENCOUNTER 2025-07-12 12:52 | Outpatient (AMB) | payer MEDICARE, SELFPAY ==
--- OUTSIDE RECORDS SUMMARY | 2021-05-10 23:00 | XMS_ITS | Encounter Summary ---
Author Organization [facility] Address Formerly [facility], [facility] [address] [place] [phone] Phone Care Team Providers Care Bridge Design Engineer Name Role Phone Unavailable Primary Care Provider Unavailabl e Encounter Details Date Type Department Care Team (Late st Contact Info) Description 05/11/2021 Hospital Encounter [facility] OUTSIDE [address] [place] [phone] Andreina Plascencia MD [address] [place] [address] [email or web address] Social History Tobacco Use Types Packs/Day Years Used Date Smoking Tobacco: Former Smokeless Tobacco: Never Comments:50 yrs ago Alcohol Use Standard Drinks/Week Comments Yes 10 (1 standard drink = 0.6 oz pu re alcohol) 1 beer a day Education Answer Date Recorded Are you interested in more education? Not on samantha e 12/21/2022 Are you concerned about learning? Not on file 12/21/2022 No 12/21/2022 No 12/21/2022 Digital Access Answer Date Recorded No 01/15/2023 No 01/15/2023 Reliable internet access at home? Not on file 01/15/2023 Device with a working camera? Not on file Sex and Gender Information Value Date Recorded Sex Assigned at Male 01/10/2022 11:48 AM EDT Legal Sex Male 10:31 AM EDT Gender Identity Male 01/10/2022 11:48 AM EDT Sexual Orientation Straight 01/10/2022 11 :48 AM EDT documented as of this encounter Plan of Treatment Upcoming Encounters Date Type Department Care Team (Late st Contact Info) Description 09/26/2025 10:30 AM EST Evaluation [facility] Audiology [address] [phone] Mirna Chávez, AuD [facility], [facility] [address] [place] [address] [email or web address] 09/26/2025 10:45 AM EST Office Visit [facility] Otolaryngology [address] [address] Mana Mooney MD [address] [place] [address] [email or web address] 11/15/2025 12:30 PM EDT Evaluation [facility] Audiology [address] [phone] Mirna Chávez, AuD 65 [facility], [facility] [address] [place] [address] [email or web address] documented as of this encounter Procedures Procedure Name Priority Date/Time Associated Diagnosis Comments CT NECK OUTSIDE (NO INTERPRETATION) Routine 05/11/2021 12:00 AM EDT documented in this encounter Results * CT Neck Outside (No Interpretation) (05/11/2021 12:00 AM EDT) Narrative [facility] IMG INTERFACES - 07/18/2021 7:56 AM EST This study is for PACS storage only and not for interpretation. us Andreina Plascencia MD IMG OUTSIDE IMAGING W/OUT INTERPRETATION Final Result [facility] IMG INTERFACES documented in this encounter Visit Diagnoses Not on filedocumented in this encounter Additional Source Comments The information contained in this document represents components of the legal health record. It is not the complete legal health record.[facility]
--- OUTSIDE RECORDS SUMMARY | 2021-05-10 23:05 | XMS_ITS | Encounter Summary ---
Author Organization [facility] Address [facility] [address] [place] [address] Phone Care Team Providers Care Marinator Name Role Phone Unavailable Primary Care Provider Unavailabl e Encounter Details Date Type Department Care Team ([facility] st Contact Info) Description 05/11/2021 12:05 AM EDT Hospital Encounter [facility] OUTSIDE [address] [place] [phone] Andreina Plascencia MD [address] [place] [address] [email or web address]. [facility] Social History Tobacco Use Types Packs/Day Years [...] Info) Description 09/26/2025 10:30 AM EST Evaluation [facility] Aud[facility] [address] [phone] Mirna Chávez, AuD 65 [facility], [facility] [address] [place] [address] [email or web address] 09/26/2025 10:45 AM EST Office Visit [facility] Otolaryngology [address] [address] Mana Mooney MD [address] [place] [phone] [email or web address] 11/15/2025 12:30 PM EDT Evaluation [facility] Audiology [address] [phone] Mirna Chávez, AuD [address] [place] [address], [facility] [address] [place] [address] [email or web address] documented as of this encounter Procedures Procedure [...] It is not the complete legal health record.[facility]
--- NOTE | 2025-07-12 12:54 | MHC.OFFVIS ---
Intake Visit Reasons: 6m/PSA Intake Note: Patient is present for 6M/PSA Urology Medication:TAMSULOSIN,TADALAFIL Antibiotic Allergy:NONE Blood Thinner:ASPIRIN Labs done : 06/17/25 Total PSA 4.32 PVR: 129 mls Material Flow Analyst Required: No Accompanied by: Spouse Allergies No Known Allergies Allergy (Mild, Verified 07/12/25 12:55) N/A HPI Comments Details: Kole is a pleasant male. He is a patient of Dr. Harrison. He is seen for the following urologic conditions - elevated PSA - lower urinary tract symptoms - prostatitis - erectile dysfunction High PSA with very high free PSA Normal MAKENZIE - large prostate Follow-up from trial of dutasteride - did not tolerate medication 06/18 4.7 45% PCPT database 12/15 HG 8% has relatives in [facility] Six-month follow-up PSA Prostatitis Chronic prostatitis 04/15 Microgen 04/15 - large number of bacteria with fungus - see result Tx with augmentin, doxycyline, fluconazole Low urinary tract symptom with elevated PSA Has had variable PSA for number of years Responded well to tamsulosin Discussed current PSA Percentage free remains high CT scan 120 g prostate Continue to follow every 6 months PSA - 03/13 5.3 41% free, 12/13 5.1, 06/14 6.1 51%, 12/14 7.2 50%, 06/15 5, 11/14 6.5, 05/17 8.4, 06/17 5.2 55%, 01/16 7.8 32% Symptomatology - weakness of stream and incomplete emptying PFSH Medical History Vertigo Hearing loss Hyperlipidemia Elevated PSA Enlarged prostate without lower urinary tract symptoms (luts) Surgical History History of surgery Review of Systems Const Denies chills and Denies fever(s) Card Reports no additional complaints and Denies syncope Resp Denies cough GI Denies abdominal pain and Denies heartburn Reports as per HPI and Denies change in libido Neuro Denies syncope Psych Denies change in libido Endo Denies change in libido Physical Exam Const General: cooperative, healthy appearing, comfortable and no acute distress Orientation/consciousness: patient oriented x3 HEENT Face and sinus: Yes normal facial exam Mouth: moist mucous membranes Neck Neck: Yes normal visual inspection, Yes full ROM and Yes trachea midline Chest Chest palpation & inspection: normal inspection of the chest Resp Effort & Inspection: normal respiratory effort, able to speak in complete sentences and no respiratory distress GI Inspection: Yes normal to inspection Back/Spine/Pelvis Cervical Spine: normal cervical lordosis Thoracic/Lumbar Spine: thoracic and lumbar spine normal to inspection Skin General skin exam: no rashes or lesions noted Neuro General: patient oriented x3, gait normal, tone normal and moves all extremities Extrem General: Yes normal to inspection and Yes capillary refill normal Office Procedures Post Void Residual Post Residual Void Post Void Residual (PVR): 129 53103-Abhq Void Residual by ultrasound Results AMB Urinalysis, Automated UA Leukoctes 0 Melony/uL Last Edit by Jhoana Rios [facility] on 07/12/25 13:10 UA Nitrite Negative Last Edit by Jhoana Rios [facility] on 07/12/25 13:10 UA Urobilinogen 0.2 mg/dL Last Edit by Jhoana Rios [facility] on 07/12/25 13:10 UA Protein 0 mg/dL Last Edit by Jhoana Rios [facility] on 07/12/25 13:10 UA pH 8.0 Last Edit by Jhoana Rios [facility] on 07/12/25 13:10 UA Blood 0 Guido/uL Last Edit by Jhoana Rios [facility] on 07/12/25 13:10 UA Specific Soquel 1.005 Last Edit by Jhoana Rios [facility] on 07/12/25 13:10 UA Ketone Negative Last Edit by Jhoana Rios [facility] on 07/12/25 13:10 UA Bilirubin 0 mg/dL Last Edit by Jhoana Rios [facility] on 07/12/25 13:10 UA Glucose 0 mg/dL Last Edit by Jhoana Rios [facility] on 07/12/25 13:10 Results Reviewed Results Reviewed: Laboratory Last Values Urine pH (Auto) 8.0 07/12/25 13:09 Specific Soquel (Auto) 1.005 07/12/25 13:09 Urine Protein (Auto) 0 mg/dL 07/12/25 13:09 Glucose (UA)(Auto) 0 mg/dL 07/12/25 13:09 Urine Ketones (Auto) Negative 07/12/25 13:09 Urine Blood (Auto) 0 Guido/uL 07/12/25 13:09 Urine Nitrite (Auto) Negative 07/12/25 13:09 Urine Bilirubin (Auto) 0 mg/dL 07/12/25 13:09 Urine Urobilinogen (Auto) 0.2 mg/dL 07/12/25 13:09 Leukocyte Esterase (Auto) 0 Melony/uL 07/12/25 13:09 Assessment & Plan Assessment & Plan (1) Elevated PSA: Code(s): R97.20 - Elevated prostate specific antigen [PSA] Category: Medical (2) BPH w urinary obs/LUTS: Code(s): N40.1 - Benign prostatic hyperplasia with lower urinary tract symptoms; N13.8 - Other obstructive and reflux uropathy Category: Medical Plan Six-month repeat lab Orders: Orders PSA,Total (Free>4and<10) 6 Months R97.20 - Elevated prostate specific antigen [PSA] Medications: Refilled tadalafil 5 mg PO DAILY 90 tabs 1RF sexual activity 90 days N52.01 - Erectile dysfunction due to arterial insufficiency tamsulosin 0.4 mg PO BEDTIME 90 caps 1RF 90 days N30.90 - Cystitis, unspecified without hematuria Patient Instructions: This note is constructed using voice recognition software. While every effort has been made to ensure accuracy dry cleaning teacher errors may have been included. Imaging studies, laboratory and physical exam results were discussed and reviewed in detail. No major barriers to patient understanding were identified. An opportunity to ask questions regarding the treatment plan was provided. All questions were answered. The patient expressed understanding and agreement with the above treatment plan. The patient is aware they should contact our office by phone for worsening of their current condition or the appearance of new urologic symptoms. Compliance is encouraged with any medications and followup testing that is ordered. It is a privilege to participate in the urologic care of your patient. If you have any questions or concerns regarding treatment for the above conditions, or other urologic issues, please do not hesitate to contact me. The office telephone contact is [phone]. Sincerely, Dr Antolin Cavanaugh MD, [facility] - Urology Compassionate Specialist Care for the Genitourinary System Coding Level of Care Code Est Pt Level 3 (24821) Complex EM visit Add On G2211 Diagnoses Elevated PSA R97.20 BPH w urinary obs/LUTS N40.1; N13.8 CPT Codes Post Residual Void - PVR CPT Code: 56728-Ccyc Void Residual by ultrasound ([id number])
--- OUTSIDE RECORDS SUMMARY | 2025-07-13 04:15 | XMS_ITS | Clinical Summary ---
Author Organization [facility] Address [address] [place] [address] Phone Care Team Providers Care Carbon Capture Power Plant Operator Name Role Phone Lis Harrison MD Primary Care Provider [phone] Mana Mooney MD Unavailable [phone] Allergies No known active allergies Medications clotrimazole [...] Team Description 05/03/2025 3:15 PM EDT Evaluation [facility] [place] [address] [address] Mirna Chávez, Enedina Encounter for [...] Info) Description 09/26/2025 10:30 AM EST Evaluation [facility] [place] [address] [phone] Mirna Chávez AuD [address] [facility] [address] [place] [address] [email or web address] 09/26/2025 10:45 AM EST Office Visit [facility] [place]ology [address] [address] Mana Mooney MD [address] [place] [address] [email or web address] 11/15/2025 12:30 PM EDT Evaluation [facility] [place] [address] [phone] Mirna Chávez AuD [address] [facility], [address] [place] [address] [email or web address] Health Maintenance Due Date Last Done Comments [...] on patient's age to complete this topic IPV VACCINES Aged Out No longer eligi ble based on patient's age to complete this topic MENINGOCOCCAL VACCINES (ACWY) Aged Out No longer eligible based on patient's age to complete this topic MENINGOCOCCAL VACCINES (B) Aged Out N o longer eligible based on patient's age to complete this topic Medical Devices Not on file Insurance [employer] MEDICARE PPO [place] [place] [address] MEDICARE PPO BLUE [place] [place] [address] [address]ICARE [address] [place] [address] [address] [place] [place] [address] [address]ARE [address] [place] [address] [address] [place] [place] [address] MEDICARE PPO BLUE REPLACEMENT [facility] MEDICARE PPO BLUE REPLACEMENT [employer] [place] MEDIC[place] P[place] BLUE REPLACEMENT Advance Directives For more information, please contact: [phone] (9AM - 5PM [facility], Friday-Friday) Documents on File Type Date Recorded Patient Shearing Shed Hand Expl anation Healthcare Proxy 01/18/2022 12:41 PM Care Teams Carbon Capture Power Plant Operator Relationship Specialty Start Date End Date Lis Harrison MD [address] [place] [address] [email or web address] PCP - General 06/12/21 Mana Mooney MD [address] [place] [address] [email or web address] Referring Physician Otolaryngology 04/09/23 Additional Source Comments The information contained in this document represents components of the legal health record. It is not the complete legal health record.[facility]
--- OUTSIDE RECORDS SUMMARY | 2025-07-13 04:16 | XMS_ITS | Encounter Summary ---
Author Organization [facility] Address [facility] [address] [place] [address] Phone Care Team Providers Care Head Mva Reactor Operator Name Role Phone Lis Harrison MD Primary Care Provider [phone] Mana Mooney MD Unavailable [phone] Encounter Details Date Type Department Care Team (Late st Contact Info) Description 12/19/2021 Procedure Pass [facility] - [facility] [place] [address] [place] [address] Social History Tobacco Use Types Packs/Day Years [...] [facility] [place] [address] [address] Mirna Chávez, Enedina 65 [facility], [address] [place] [address] [email or web address] 09/26/2025 10:45 AM EST Office Visit [facility] [place] [address] [place] [address] Mana Mooney MD [address] [place] [phone] [email or web address] 11/15/2025 12:30 PM EDT Evaluation [facility] [place] [address] [place] [address] Mirna Chávez AuD 65 [facility] [address] [place] [address] [email or web address] documented as of this encounter Visit Diagnoses Not on filedocumented in this encounter Care Teams Head Mva Reactor Operator Relationship Specialty Start Date End Date Lis Harrison MD [address] [place] [address] [email or web address] PCP - General 06/12/21 Mana Mooney MD [address] [place] [phone] [email or web address] Referring Physician Otolaryngology 04/09/23 documented as of this encounter Additional Source Comments The information contained in this document represents components of the legal health record. It is not the complete legal health record.[facility]
--- OUTSIDE RECORDS SUMMARY | 2025-07-13 04:17 | XMS_ITS | Encounter Summary ---
Author Organization [facility] Address [facility] [employer] [facility] [address] [place] [address] Phone Care Team Providers Care Manager Fiber Name Role Phone Lis Harrison MD Primary Care Provider [phone] Mana Mooney MD Unavailable [phone] Encounter Details Date Type Department Care Team (Late st Contact Info) Description 01/17/2022 Procedure Pass [facility] [address] [place] [address] Social History Tobacco Use Types Packs/Day Years [...] Info) Description 09/26/2025 10:30 AM EST Evaluation [facility] [place] [address] [address] Mirna Chávez, AuD 65 [facility], [address] [place] [address] [email or web address] 09/26/2025 10:45 AM EST Office Visit [facility] [place] [address] [place] [address] Mana Mooney MD [address] [place] [phone] [email or web address] 11/15/2025 12:30 PM EDT Evaluation [facility] [place] [address] [place] [address] Mirna Chávez AuD 65 [facility] [address] [place] [address] [email or web address] documented as of this encounter Visit Diagnoses Not on filedocumented in this encounter Care Teams Manager Fiber Relationship Specialty Start Date End Date Lis Harrison MD [address] [place] [address] [email or web address] PCP - General 06/12/21 Mana Mooney MD [address] [place] [address] [email or web address] Referring Physician Otolaryngology 04/09/23 documented as of this encounter Additional Source Comments The information contained in this document represents components of the legal health record. It is not the complete legal health record.[facility]
--- OUTSIDE RECORDS SUMMARY | 2025-07-13 04:17 | XMS_ITS | Encounter Summary ---
Author Organization [facility] Address [address] [place] [address] [place] [address] Phone Care Team Providers Care Qc Tech Name Role Phone Lis Harrison MD Primary Care Provider [phone] Mana Mooney MD Unavailable [phone] Encounter Details Date Type Department Care Team (Late st Contact Info) Description 03/12/2023 Procedure Pass [facility] - MRI, [facility] [address] [place] [address] Social History Tobacco Use Types Packs/Day Years [...] Info) Description 09/26/2025 10:30 AM EST Evaluation [facility] Audiology [address] [phone] Mirna Chávez, AuD 65 [facility] [address] [place] [address] [email or web address] 09/26/2025 10:45 AM EST Office Visit [facility] Otolaryngology [address] [address] Mana Mooney MD [address] [place] [address] [email or web address] 11/15/2025 12:30 PM EDT Evaluation [facility] Audiology [address] [address] Mirna Chávez, AuD [address] [place] [address] [email or web address] documented as of this encounter Visit Diagnoses Not on filedocumented in this encounter Care Teams Qc Tech Relationship Specialty Start Date End Date Lis Harrison MD [address] [place] [address] [email or web address] PCP - General 06/12/21 Mana Mooney MD [address] [place] [address] [email or web address] Referring Physician Otolaryngology 04/09/23 documented as of this encounter Additional Source Comments The information contained in this document represents components of the legal health record. It is not the complete legal health record.[facility]
== END 2025-07-12 13:23 | disposition home or self-care (01) ==
LOC: HO.HUSH 12:53
PROVIDERS: PCP Internal Medicine; Visit Provider Urology
DX: R97.20 Elevated prostate specific antigen [PSA] (principal); N40.1 Benign prostatic hyperplasia with lower urinary tract symptoms; N13.8 Other obstructive and reflux uropathy
CPT/HCPCS: 99213; G2211

== ENCOUNTER → 2025-07-12 12:52 | Outpatient (BNVA) | payer MEDICARE, SELFPAY | PROVIDERS: PCP Internal Medicine; Visit Provider Urology | DX: N40.1 Benign prostatic hyperplasia with lower urinary tract symptoms (principal); N13.8 Other obstructive and reflux uropathy; R97.20 Elevated prostate specific antigen [PSA] | CPT/HCPCS: 51798; 99212 ==

== ENCOUNTER 2025-08-16 11:14 | Outpatient (AMB) | payer MEDICARE, SELFPAY ==
--- OUTSIDE RECORDS SUMMARY | 2021-05-10 23:00 | XMS_ITS | Encounter Summary ---
Author Organization [facility] Address [facility] [employer] [facility] [address] [place] [address] Phone Care Team Providers Care Railroad Worker Name Role Phone Unavailable Primary Care Provider Unavailabl e Encounter Details Date Type Department Care Team (Late st Contact Info) Description 05/11/2021 Hospital Encounter [facility] OUTSIDE [address] [place] [phone] Andreina Plascencia MD [address] [place] [address] [email or web address] Social History Tobacco Use Types Packs/Day Years [...] Info) Description 09/26/2025 10:30 AM EST Evaluation [facility] [address] [place] [phone] Mirna Chávez, AuD 65 [facility] [address] [place] [address] [email or web address] 09/26/2025 10:45 AM EST Office Visit [facility] [address] [place] [address] Mana Mooney MD [address] [place] [phone] [email or web address], [facility] 11/15/2025 12:30 PM EDT Evaluation [facility] [address] [place] [phone] Mirna Chávez, AuD 65 [facility], [facility] [address] [place] [address] [email or web address] documented as of this encounter Procedures Procedure [...] It is not the complete legal health record.[facility]
--- OUTSIDE RECORDS SUMMARY | 2021-05-10 23:05 | XMS_ITS | Encounter Summary ---
Author Organization [facility] Address [facility] [address] [place] [address] Phone Care Team Providers Care Income Tax Advisor Name Role Phone Unavailable Primary Care Provider Unavailabl e Encounter Details Date Type Department Care Team ([facility] st Contact Info) Description 05/11/2021 12:05 AM EDT Hospital Encounter [facility] OUTSIDE [address] [place] [phone] Andreina Plascencia MD [address] [place] [address] [email or web address] Social History Tobacco Use Types Packs/Day Years [...] Info) Description 09/26/2025 10:30 AM EST Evaluation [facility] [address] [place] [phone] Minra Chávez, AuD 65 [facility] [address] [place] [address] [email or web address] 09/26/2025 10:45 AM EST Office Visit [facility] [address] [place] [phone] Mana Mooney MD [address] [place] [phone] [email or web address] 11/15/2025 12:30 PM EDT Evaluation [facility] [address] [place] [phone] Mirna Chávez, AuD [address] [place] [phone] [email or web address] documented as of this encounter Procedures Procedure Name Priority Date/Time Associated Diagnosis Comments CT HEAD OUTSIDE (NO INTERPRETATION) Routine 05/11/2021 12:05 AM EDT documented in this encounter Results * CT Head Outside (No Interpretation) (05/11/2021 12:05 AM EDT) Narrative [facility] IMG INTERFACES - 07/18/2021 8:06 AM EST This study is for PACS storage only and not for interpretation. us Andreina Plascencia MD IMG OUTSIDE IMAGING W/OUT INTERPRETATION Final Result [facility] IMG INTERFACES documented in this encounter Visit Diagnoses Not on filedocumented in this encounter Additional Source Comments The information contained in this document represents components of the legal health record. It is not the complete legal health record.[facility]
--- NOTE | 2025-08-16 11:22 | MHC.OFFVIS ---
Vital Signs 08/16/25 11:28 Height 5 ft 11 in Weight 205 lb BMI 28.6 BP 142/82 H Blood Pressure Location Lt brachial Position Sitting Respiration 16 Pulse 69 Pulse Source Pulse Oximeter Pulse Oximetry (%) 97 Oxygen Delivery Method Room Air Intake Visit Reasons: Imbalance Research Environmental Scientist Required: No Accompanied by: Spouse Allergies No Known Allergies Allergy (Mild, Verified 08/16/25 11:29) N/A HPI Comments Details: Kole is an 84-year-old old male patient with a past medical history of hyperlipidemia, BPH, hearing loss, and BPPV here today for an evaluation of ongoing imbalance and headache. He has had a history of vertigo for at least [address] Liao in the past. About 2-3 years ago his symptoms became worse after a fall with a head strike. He had a rupture of his ear drum at that time. This was surgically repaired. He has been followed by [facility] and diagnosed with BPPV and has also been told by [facility] in the past that he likely has migraine. He started to have worsening of his symptoms about a year after that procedure with intermittent sensations of foggy sensation in head especially with weather changes. He has noticed that with moisture in the air he has head pressure and pain to the frontal and retroorbital areas described as a pressure pain. This was occurring frequently and with intensity about 1 month ago. It has subsided somewhat since then but is still happening nearly daily. He does note some left trapezius muscle pain and has been using heating pack at night. He was recently placed on an SSRI medication by urology for his prostate. He felt so sick that he felt like he was going to . His pcp recently started him on lexapro and developed nausea, headache, sleep disturbances, and sexual dysfunction. He feels that the sideffects from these medicaitons have been lingering and may be contributing to his symptoms overall. He did not take them for more than a week or so. 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 Prior workup: MRI of the brain without contrast performed 06/06/2025 at [facility] radiology IMPRESSION: 1. No acute intracranial pathology seen. 2. Scattered nonspecific periventricular T2 hyperintense foci, suggestive of chronic microvascular ischemic or gliotic changes, slightly progressed since the prior exam. 3. Generalized volume loss. [facility] Medical History Vertigo Hearing loss Hyperlipidemia Elevated PSA Enlarged prostate without lower urinary tract symptoms (luts) Surgical History History of surgery Physical Exam Vital Signs: Last Vital Signs Pulse 69 08/16/25 11:28 Resp 16 08/16/25 11:28 BP 142/82 H 08/16/25 11:28 Pulse Ox 97 08/16/25 11:28 Oxygen Delivery Method Room Air 08/16/25 11:28 BMI result Body Mass Index 28.6 Const General: cooperative, healthy appearing, comfortable and no acute distress Nutritional Appearance: well nourished Orientation/consciousness: patient oriented x3 Limitations: no limitations HEENT Head: Yes normal to inspection and Yes normocephalic Eyes General: appearance normal, both eyes and all related structures Visual Hale: normal visual hale by confrontation Alignment and Position: alignment normal Periorbital: periorbital findings normal Eyelids: Yes eyelids normal Conjunctivae: conjunctivae normal Sclerae: sclerae normal Direct Ophthalmoscopy: normal light reflex, no papilledema and fundi normal bilaterally Neuro General: patient oriented x3 Cranial nerves: Yes CN's II-XII intact bilaterally and Yes Facial sensation intact/muscles of mastication intact Cognition (Neuro): normal cognition Gait exam (Neuro): Normal gait present Motor exam (neuro): 5/5 motor strength present throughout and no tremor noted Sensory Exam: Abnormal lower extremity sensory exam bilateral vibratory abnormal absent (Bilateral great toes ) Deep tendon reflexes (DTR's): Right triceps reflex intensity grade: 1+, Left triceps reflex intensity grade: 1+, Rt Biceps (C5, C6): 1+, Left biceps reflex intensity grade: 1+, Right brachioradialis reflex intensity grade: 1+, Left brachioradialis reflex intensity grade: 1+, Right patellar reflex intensity grade: 2+, Left patellar reflex intensity grade: 2+, Right ankle reflex intensity grade: 2+ and Left ankle reflex intensity grade: 2+ Romberg Test: Negative Pupils: Normal pupillary reactivity/response: bilateral Psych Appearance: grossly normal Mental Status: mental status grossly normal Speech and movement: Normal speech and movement present and Clear speech present Affect: normal affect Attitude: cooperative Thought process: Normal thought process present Thought content: Normal thought content present Insight: Good insight present (Psych) Judgement: Good judgement present (Psych) Assessment & Plan Assessment & Plan (1) Chronic tension type headache: Code(s): G44.229 - Chronic tension-type headache, not intractable Category: Medical (2) Trigger point of left shoulder region: Code(s): M25.512 - Pain in left shoulder Category: Medical (3) Myofascial pain: Code(s): M79.18 - Myalgia, other site Category: Medical Plan Kole is an 84-year-old old male patient with a past medical history of hyperlipidemia, BPH, hearing loss, and BPPV here today for an evaluation of ongoing imbalance and headache. He has had a history of vertigo for at least [address] Liao in the past. His symptoms are likely related to chronic tension in the trapezius and cervical paraspinal muscles. These symptoms include his sense of imbalance and pressure type headaches. He has an obvious left-sided trapezius trigger point. His MRI of the brain does not show any abnormalities in the brain structures likely contributing to his symptoms however there was a limited view of the cervical structures but from what I can see there was likely some straightening of the cervical paraspinal muscles which can be seen with cervical muscle spasms. His history of inner ear rupture may also be contributing to his imbalance. On exam, there was also some notable loss of vibratory sensation in the great toes bilaterally which can likely be a contributing factor. Sensory loss however was very mild and patient would like to hold off on any testing for this at this time. There was no overt hyperreflexia indicating C-spine pathology at this time. No cerebellar findings on exam. There was a significant left-sided trigger point to the trapezius area. I reviewed some options for treatment including physical therapy, muscle relaxers, and trigger point injections. He would like to avoid any oral therapies and does not wish to pursue any trigger point injections. He is open to physical therapy in the future however would like to try some modalities at home 1st. I did review patient's MRI with him including imaging at time of his visit. -start a trial of magnesium 400 mg nightly -continue with heat therapy -massage and myofascial release techniques at home (patient's was educated on how she can assist with this) -follow up in 3 months or sooner if needed -future considerations: c-spine MRI or EMG, Physical therapy (muscle relaxers or trigger point injections if patient feels open to it) Total time spent today was 60 minutes including review of prior records and imaging, detailed physical exam and history taking, as well as education with both the patient and his regarding home remedies and follow up care. Coding Level of Care Code Est Pt Level 5 (12056) Diagnoses Chronic tension type headache G44.229 Trigger point of left shoulder region M25.512 Myofascial pain M79.18
[2025-08-16 11:28] VITALS: BP 142/82; PULSE 69; RESP 16; O2SAT 97; BMI 28.6
--- OUTSIDE RECORDS SUMMARY | 2025-08-16 12:37 | XMS_ITS | Encounter Summary ---
Author Organization [facility] Address [address] [place] [address] [place] [phone] Phone Care Team Providers Care Java Performance Engineer Name Role Phone Lis Harrison MD Primary Care Provider [phone] Mana Mooney MD Unavailable [phone] Encounter Details Date Type Department Care Team (Late st Contact Info) Description 03/12/2023 Procedure Pass [facility] Imaging - MRI, [place] [facility] [address] [place] [address] Social History Tobacco Use Types Packs/Day Years [...] Info) Description 09/26/2025 10:30 AM EST Evaluation [facility] [address] [place] [phone] Mirna Chávez, AuD [address] [address] [email or web address] 09/26/2025 10:45 AM EST Office Visit [facility] [address] [place] [phone] Mana Mooney MD [address] [place] [phone] [email or web address] 11/15/2025 12:30 PM EDT Evaluation [facility] [address] [place] [address] [phone] Mirna Chávez, AuD [address] [place] [phone] [email or web address] documented as of this encounter Visit Diagnoses Not on filedocumented in this encounter Care Teams Java Performance Engineer Relationship Specialty Start Date End Date Lis Harrison MD [address] [place] [phone] [email or web address] PCP - General 06/12/21 Mana Mooney MD [address] [place] [phone] [email or web address] Referring Physician Otolaryngology 04/09/23 documented as of this encounter Additional Source Comments The information contained in this document represents components of the legal health record. It is not the complete legal health record.[facility]
--- OUTSIDE RECORDS SUMMARY | 2025-08-16 12:37 | XMS_ITS | Encounter Summary ---
Author Organization [facility] Address [facility] [address] [place] [address] Phone Care Team Providers Care Machine Long Goods Helper Name Role Phone Lis Harrison MD Primary Care Provider [phone] Mana Mooney MD Unavailable Encounter Details Date Type Department Care Team (Late Contact Info) Description 01/17/2022 Procedure Pass [facility] PERIOP DEPT [address] [place] [id number] Social History Tobacco Use Types Packs/Day Years [...] Info) Description 09/26/2025 10:30 AM EST Evaluation [facility] [address] [place] [phone] Mirna Chávez, Enedina [address] [facility], [address] [place] [address] [email or web address] 09/26/2025 10:45 AM EST Office Visit [facility] [address] [place] [phone] Mana Mooney MD [address] [place] [phone] [email or web address] 11/15/2025 12:30 PM EDT Evaluation [facility] [address] [place] [phone] Mirna Chávez AuD 65 [facility] [address] [place] [address] [email or web address] documented as of this encounter Visit Diagnoses Not on filedocumented in this encounter Care Teams Machine Long Goods Helper Relationship Specialty Start Date End Date Lis Harrison MD [address] [place] [phone] [email or web address] PCP - General 06/12/21 Mana Mooney MD [address] [place] [phone] [email or web address] Referring Physician Otolaryngology 04/09/23 documented as of this encounter Additional Source Comments The information contained in this document represents components of the legal health record. It is not the complete legal health record.[facility]
--- OUTSIDE RECORDS SUMMARY | 2025-08-16 12:37 | XMS_ITS | Clinical Summary ---
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) from Last [...] Evaluation [facility] [address] [place] [phone] Mirna Chávez AuD 65 [facility], [address] [address] [email or web address] 09/26/2025 10:45 AM EST Office [facility] [address] [place] [address] Mana Mooney MD [address] [place] [phone] [email or web address] 11/15/2025 12:30 PM EDT Evaluation [facility] [address] [place] [phone] Mirna Chávez AuD 65 [facility], [address] [place] [address] [email or web address] Health Maintenance Due Date Last Done Comments Adult Td,Tdap Booster 1942 DEPRESSION SCREENING 1954 PNEUMOCOCCAL VACCINES (50+ years) (1 of 1 - PCV) 1992 ZOSTER VACCINES (1 of 2) 1992 RSV VACCINE (1 - 1-dose 75+ series) 2017 INFLUENZA VACCINE (#1) 2025 COVID-19 VACCINE (2024-2 6 season) 2025 06/20/2021, 10/23/2020, 10/02/2020 HEPATITIS [...] [place] BLUE REPLACEMENT [facility] MEDICARE PPO BLUE REPLACEMENT [facility] MEDICARE PPO BLUE REPLACEMENT [place] [address] [place] [id number] MEDICARE PPO BLUE REPLACEMENT [facility] MEDICARE PPO BLUE [address] [place] [id number] MEDICARE PPO BLUE [address]PLACEMENT [place] [address] [place] [id number] MEDICARE PPO BLUE REPLACEMENT [place] MEDICARE P[place] BLUE REPLACEMENT Advance Directives For more information, please contact: [phone] (9AM - 5PM [facility], Friday-Friday) Documents on File Type Date Recorded Patient Jig Worker Expl anation Healthcare Proxy 01/18/2022 12:41 PM Care Teams Paper Sales Representative Relationship Specialty Start Date End Date Lis Harrison MD [address] [place] [phone] [email or web address] PCP - General 06/12/21 Mana Mooney MD [address] [place] [phone] [email or web address] Referring Physician Otolaryngology 04/09/23 Additional Source Comments The information contained in this document represents components of the legal health record. It is not the complete legal health record.[facility]
--- OUTSIDE RECORDS SUMMARY | 2025-08-16 12:37 | XMS_ITS | Encounter Summary ---
Author Organization [facility] Address [facility] [employer] [facility] [address] [place] [address] Phone Care Team Providers Care Insurance Administrative Assistant Name Role Phone Lis Harrison MD Primary Care Provider [phone] Mana Mooney MD Unavailable [phone] Encounter Details Date Type Department Care Team (Late st Contact Info) Description 12/19/2021 Procedure Pass XIN Imaging - [facility] [place] [address] [place] [address] Social History Tobacco Use Types Packs/Day Years [...] Info) Description 09/26/2025 10:30 AM EST Evaluation [facility] [address] [place] [phone] Mirna Chávez, Enedina [address] [facility], [address] [place] [address] [email or web address] 09/26/2025 10:45 AM EST Office Visit [facility] [address] [place] [address] Mana Mooney MD [address] [place] [phone] [email or web address] 11/15/2025 12:30 PM EDT Evaluation [facility] [address] [place] [phone] Mirna Chávez AuD 65 [facility] [address] [place] [address] [email or web address] documented as of this encounter Visit Diagnoses Not on filedocumented in this encounter Care Teams Insurance Administrative Assistant Relationship Specialty Start Date End Date Lis Harrison MD [address] [place] [phone] [email or web address] PCP - General 06/12/21 Mana Mooney MD [address] [place] [phone] [email or web address] Referring Physician Otolaryngology 04/09/23 documented as of this encounter Additional Source Comments The information contained in this document represents components of the legal health record. It is not the complete legal health record.[facility]
== END 2025-08-16 12:16 | disposition home or self-care (01) ==
LOC: HO.HSM 11:15
PROVIDERS: PCP Internal Medicine; Visit Provider Nurse Practitioner
DX: G44.229 Chronic tension-type headache, not intractable (principal); M25.512 Pain in left shoulder; M79.18 Myalgia, other site
CPT/HCPCS: 99215

== ENCOUNTER → 2025-08-16 11:14 | Outpatient (BNVA) | payer MEDICARE, SELFPAY | PROVIDERS: PCP Internal Medicine; Visit Provider Nurse Practitioner | DX: R26.89 Other abnormalities of gait and mobility (principal); M25.512 Pain in left shoulder; G44.229 Chronic tension-type headache, not intractable; M79.18 Myalgia, other site | CPT/HCPCS: 99212 ==